=== PATIENT | male | born 1980 | race Caucasian/White ===

== ENCOUNTER 2022-02-14 20:50 | Inpatient (IN) | payer SELFPAY ==
[~2022-02-14] VITALS: Ht 172.7 cm; Wt 101.6 kg
[2022-02-14 21:01] VITALS: BP 104/43
[2022-02-14] MEDS ORDERED: ACETAMINOPHEN EXTRA STRENGTH 500 MG TAB ONE (21:09)
--- NOTE | 2022-02-14 21:10 | NUR ---
PT AMBULATED TO BED 10.
[2022-02-14] MEDS ORDERED: IBUPROFEN 800 MG TAB ONE (21:11)
--- NOTE | 2022-02-14 21:15 | NUR ---
cooling measures initiated, ice packs to bilat armpits and groin.
--- NOTE | 2022-02-14 21:15 | NUR ---
received verbal order from cruz to give 1g of tylenol and 800mg of ibuprofen po for fever of 103.4
[2022-02-14] MEDS ORDERED: NACL 0.9% 2,000 ML IV ONE (21:20)
--- NOTE | 2022-02-14 21:29 | NUR ---
18 g to left ac, labs collected and given to crystal.
[2022-02-14] MEDS ORDERED: IBUPROFEN 800 MG TAB PO ONE (21:35)
[2022-02-14] MEDS ORDERED: ACETAMINOPHEN EXTRA STRENGTH 500 MG TAB PO ONE (21:35)
[2022-02-14 21:38] LABS: BASOPHILS % (AUTO) 0.3 % (0.0-2.0); EOSINOPHILS % (AUTO) 0.1 % (0.0-4.0); HEMATOCRIT 40.1 % (36-52); HEMOGLOBIN 13.1 g/dL (12.0-18.0); LYMPHOCYTES # (AUTO) 0.9 K/uL (2.0-11.5); LYMPHOCYTES % (AUTO) 6.6 % (20.5-51.1); MEAN CORPUSCULAR HEMOGLOBIN 27 pg (27-31); MEAN CORPUSCULAR HGB CONC 33 g/dL (33-37); MEAN CORPUSCULAR VOLUME 83.4 fL (80-94); MONOCYTES # (AUTO) 0.9 K/uL (0.8-1.0); NEUTROPHILS # (AUTO) 11.1 K/uL (1.8-7.7); PLATELET COUNT (AUTO) 271 K/uL (140-450); RED BLOOD CELL COUNT(AUTO) 4.81 MIL/uL (4.20-6.10); RED CELL DISTRIBUTION WIDTH 13.3 % (11.6-13.7)
[2022-02-14] MEDS ORDERED: AZITHROMYCIN 500 MG in DEXTROSE 5% 250 ML IV ONE (21:40)
[2022-02-14 21:56] LABS: ALBUMIN 2.5 g/dL (3.4-5.0); ANION GAP 7.3 (8-16); CARBON DIOXIDE 29.6 mmol/L (21-32); CREATININE 1.1 mg/dL (0.6-1.3); POTASSIUM 3.9 mmol/L (3.5-5.1); TOTAL BILIRUBIN 0.3 mg/dL (0.0-1.0)
[2022-02-14] MEDS ORDERED: DOCUSATE SODIUM 100 MG GELCAP PO PRN (22:25)
[2022-02-14] MEDS ORDERED: ZOLPIDEM 5 MG TAB PO PRN (22:25)
[2022-02-14] MEDS ORDERED: ONDANSETRON 4 MG/2 ML VIAL IM/IVP PRN (22:25)
[2022-02-14] MEDS ORDERED: POTASSIUM CHLORIDE 10 MEQ TABER PO PRN (22:25)
[2022-02-14] MEDS ORDERED: AZITHROMYCIN 500 MG INJ VIAL IV ONE (22:31)
[2022-02-14] MEDS ORDERED: cefTRIAXone 1,000 MG VIAL ONE (22:31)
[2022-02-14 23:10] LABS: APPEARANCE,URINE CLEAR (CLEAR); BILIRUBIN,URINE 1+ (NEGATIVE); BLOOD, URINE NEGATIVE (NEGATIVE); LEUKOCYTE ESTERASE ,URINE NEGATIVE (NEGATIVE); NITRITE, URINE NEGATIVE (NEGATIVE); UGLUCOSE TRACE (NEGATIVE)
[2022-02-14 23:12] LABS: AMYLASE 33 U/L (25-115); LIPASE 79 U/L (73-393); MAGNESIUM 1.6 mg/dL (1.8-2.4); PHOSPHORUS 2.2 mg/dL (2.5-4.9); THYROID STIMULATING HORMONE 2.85 uIU/mL (0.34-3.74); TRIGLYCERIDES 65 mg/dL (30-150)
--- NOTE | 2022-02-14 23:30 | NUR ---
RECEIVED PT FROM ER NURSE VIA WHEELCHAIR FOR CONTINUITY OF CARE. PT IS aWAKE ALBANIAN SPEAKING. IV INTA CT AND PATENT.
--- NOTE | 2022-02-14 23:31 | NUR ---
REPORT GIVEN TO RIGOBERTO VERAS TO BED 106B. ADMITTED WITH AZITHROMYIN GOING AT 250ML/HR AND RIGOBERTO VERAS CONFIRMED WILL GIVE DUE MED 1000ML N/S WHEN TRANSFERRED INTO BED.
[2022-02-14 23:33] LABS: FREE T4 (FREE THYROXINE) 1.54 ng/dL (0.76-1.46)
[2022-02-14 23:47] LABS: COLOR,URINE DARK YELLOW (YELLOW)
[2022-02-14 23:56] LABS: RBC,URINE 0-5 /HPF (0-5); WBC,URINE 0-5 /HPF (0-5)
[2022-02-14 23:58] LABS: BARBITURATE, URINE NEGATIVE ng/ml (NEG <=200); BENZODIAZEPINE, URINE NEGATIVE ng/mL (NEG <=200); CANNABINOID, URINE NEGATIVE ng/mL (NEG <=50); COCAINE, URINE NEGATIVE ng/mL (NEG <=300); OPIATE, URINE POSITIVE ng/mL (NEG <=2000); PHENCYCLIDINE SCREEN,URINE POSITIVE ng/mL (NEG <=25)
[2022-02-15 00:16] LABS: CHOL/HDL RATIO 3.5 (1-4.5); HDL CHOLESTEROL 29 mg/dL (40-60); LDL (CALC) 60 mg/dL (60-100)
[2022-02-15] MEDS: NACL 0.9% 1,000 ML IV SCH ×4 (00:18→19:52)
--- NOTE | 2022-02-15 01:00 | NUR ---
TYLENOL 650 MG GIVEN FOR TEMP OF 102.3 PLUS COOLING MEASURES
[2022-02-15] MEDS: ACETAMINOPHEN 325 MG TAB PO PRN ×2 (01:35→21:38)
--- NOTE | 2022-02-15 02:00 | NUR ---
TEMP 98.0,PATIENT ASLEEP,NO DISTRESS NOTED
[2022-02-15] MEDS: guaiFENesin DM 200/20 MG-10 ML 10 ML UDC PO PRN ×2 (02:43→20:14)
[2022-02-15 03:51] LABS: PROTHROMBIN TIME 13.2 secs (10.8-13.4)
[2022-02-15 04:00] VITALS: BP 97/55
[2022-02-15] MEDS: HYDROcodone/APAP 7.5/325 MG 1 TAB PO PRN ×3 (05:16→23:28)
--- NOTE | 2022-02-15 06:00 | NUR ---
PATIENT ASLEEP,BREATHING EVEN AND UNLABORED NO DISTRESS NOTED
--- NOTE | 2022-02-15 07:27 | NUR ---
ENDORSED PT TO AM NURSE FOR CONTINUITY OF CARE,PT IS STABLE
[2022-02-15 08:00] VITALS: BP 86/41
--- NOTE | 2022-02-15 08:00 | NUR ---
RECEIVE ENDORSEMENT FORM PM SHIFT NURSE THAT PATIENT REST IN BED, GRICEL brady. HAND 24G IV NS INFUSING AT 125ML/HR. WILL CONTINUE TO MONITOR
[2022-02-15] MEDS ORDERED: NACL 0.9% 1,000 ML IV SCH (08:25)
--- NOTE | 2022-02-15 08:37 | NUR ---
PATIENT HAS BEEN SCREENED AND CATEGORIZED MODERATE NUTRITION RISK. PATIENT WILL BE SEEN WITHIN 3-5 DAYS OF ADMISSION. 02/15/22-02/19/[address]
[2022-02-15] MEDS ORDERED: AZITHROMYCIN 250 MG TAB PO SCH (09:00)
[2022-02-15] MEDS: PANTOPRAZOLE 40 MG TABEC PO SCH (09:47)
[2022-02-15] MEDS: LEVOFLOXACIN 750 MG/D5W PREMIX 150 ML IV SCH (11:00)
[2022-02-15] MEDS ORDERED: VANCOMYCIN PER PHARMACY MC PRN (11:05)
--- NOTE | 2022-02-15 11:14 | NUR ---
PATIENT RETURN FROM HEAD CT PROCEDURE. ORDER PCR. WILL CONTINUE TO MONITOR
[2022-02-15] MEDS: VANCOMYCIN 1,000 MG in DEXTROSE 5% 250 ML IV SCH ×2 (13:00→20:38)
[2022-02-15 16:00] VITALS: BP 47/41
--- NOTE | 2022-02-15 19:35 | NUR ---
RECEIVED PT FROM AM NURSE FOR CONTINUITY OF CARE.PT IS STABLE
--- NOTE | 2022-02-15 19:40 | NUR ---
ENDORSE PT TO PM SHIFT NURSE THAT PATIENT REST IN BED, GRICEL MACHADO 22G IV NS INFUSING AT 125ML/HR Addendum: 02/15/22 at 1945 by Jadyn Nobles RN ENDORSEMENT FROM PM SHIFT NURSE THAT PATIENT REST IN BED, GRICEL MACHADO INFUSING NS AT 140ML/H
[2022-02-15 20:00] VITALS: BP 111/55
--- NOTE | 2022-02-15 21:30 | NUR ---
ALL SCHEDULED MEDICATIONS GIVEN,NO ADVERSE REACTIONS NOTED
--- NOTE | 2022-02-16 01:00 | NUR ---
PATIENT ASLEEP,BREATHING EVEN AND UNLABORED,NO DISTRESS NOTED
--- NOTE | 2022-02-16 03:00 | NUR ---
PATIENT'S TEMP WENT DOWN FROM 101.9 TO 99.9 AFTER GIVING TYLENO AND COOLING MEASURES. WILL CONTINUE TO MONITOR
[2022-02-16] MEDS: NACL 0.9% 1,000 ML IV SCH ×3 (03:44→17:32)
[2022-02-16] MEDS: VANCOMYCIN 1,000 MG in DEXTROSE 5% 250 ML IV SCH (04:56)
[2022-02-16 07:01] LABS: ANION GAP 9.1 (8-16); CARBON DIOXIDE 28.1 mmol/L (21-32); POTASSIUM 4.2 mmol/L (3.5-5.1)
--- NOTE | 2022-02-16 07:10 | NUR ---
RECEIVED REPORT FROM NIGHTSHIFT NURSE FOR CONTINUITY OF CARE. PT IS CURRENTLY SLEEPING, A/OX3 AND FREQUENTLY MUTTERS INCOMPREHENSIBLE WORDS . BREATHING IS EVEN, SLIGHTLY LABORED ON ROOM AIR WITH FREQUENT COUGHING FITS. PT IS CONTINENT OF THE BOWEL AND BLADDER AND IS ABLE TO AMBULATE TO THE RESTROOM. SKIN IS INTACT, WARM AND DRY. NO FEVER NOTED. DENIES PAIN, PT IN STABLE CONDITION.
[2022-02-16 07:24] LABS: BASOPHILS % (AUTO) 0.4 % (0.0-2.0); EOSINOPHILS % (AUTO) 0.2 % (0.0-4.0); HEMATOCRIT 37.5 % (36-52); HEMOGLOBIN 12.3 g/dL (12.0-18.0); LYMPHOCYTES % (AUTO) 8.4 % (20.5-51.1); MEAN CORPUSCULAR HEMOGLOBIN 27 pg (27-31); MEAN CORPUSCULAR HGB CONC 33 g/dL (33-37); MEAN CORPUSCULAR VOLUME 83.8 fL (80-94); MONOCYTES # (AUTO) 0.4 K/uL (0.8-1.0); MONOCYTES % (AUTO) 3.6 % (1.7-9.3); NEUTROPHILS # (AUTO) 10.2 K/uL (1.8-7.7); NEUTROPHILS % (AUTO) 87.4 % (42.2-75.2); PLATELET COUNT (AUTO) 261 K/uL (140-450); RED BLOOD CELL COUNT(AUTO) 4.47 MIL/uL (4.20-6.10); RED CELL DISTRIBUTION WIDTH 13.5 % (11.6-13.7); WHITE BLOOD COUNT (AUTO) 11.7 K/uL (4.8-10.8)
[2022-02-16 08:00] VITALS: BP 118/53
[2022-02-16 08:07] LABS: T4 (THYROXINE) 7.3 ug/dL (4.5-12.0)
[2022-02-16] MEDS: guaiFENesin DM 200/20 MG-10 ML 10 ML UDC PO PRN ×2 (08:48→16:31)
[2022-02-16] MEDS: PANTOPRAZOLE 40 MG TABEC PO SCH (08:48)
--- NOTE | 2022-02-16 08:48 | NUR ---
PT VISUALLY ASSESSED AND COUGHING FREQUENCY INCREASED. PRN ROBITUSSIN GIVEN. PT DENIES ANY PAIN
--- NOTE | 2022-02-16 10:30 | NUR ---
PT VISUALLY ASSESSED AND CURRENTLY SLEEPING. NO SIGNS OF DISTRESS NOTED.
[2022-02-16] MEDS: LEVOFLOXACIN 750 MG/D5W PREMIX 150 ML IV SCH (10:59)
--- NOTE | 2022-02-16 12:00 | NUR ---
ASSISTED PT TO RESTROOM. PT WAS ABLE TO AMBULATE ON STEADY GAIT. NO SIGNS OF DISTRESS NOTED, PT COUGHING INCREASED IN FREQUENCY AFTER AMBULATING AND SETTLED AFTER LYING BACK DOWN.
[2022-02-16] MEDS: VANCOMYCIN HCL 1.25 GM in DEXTROSE 5% 250 ML IV SCH ×2 (14:00→20:35)
--- NOTE | 2022-02-16 14:15 | NUR ---
PT VISUALLY ASSESSED AND CURRENTLY SLEEPING. NO SIGNS OF DISTRESS OR PAIN NOTED.
[2022-02-16] MEDS ORDERED: AZITHROMYCIN 500 MG in DEXTROSE 5% 250 ML IV SCH (15:00)
--- NOTE | 2022-02-16 15:40 | NUR ---
PT BECAME VERY AGITATED AND BEGAN SPITTING ON THE FLOOR STATING HE COULD NOT BREATH AFTER HE AMBULATED TO THE BATHROOM. PT'S O2 SAT WAS 90% ON ROOM AIR. PT WAS PLACED ON 2 L VIA NASAL CANNULA AND WAS VISIBLY CALMED. O2 SAT INCREASED TO 96%.
[2022-02-16 16:00] VITALS: BP 137/76
[2022-02-16] MEDS: ACETAMINOPHEN 325 MG TAB PO PRN (16:25)
--- NOTE | 2022-02-16 16:25 | NUR ---
PIERCER OPERATOR REPORTED PT HAD A FEVER OF 101.1. PRN TYLENOL GIVEN, COOLING MEASURES INITIATED USING ICE PACKS.
--- NOTE | 2022-02-16 16:30 | NUR ---
PT WAS MOVED TO ROOM 112B TO PROVIDE COOLER TEMPERATURE FOR COOLING MEASURES.
--- NOTE | 2022-02-16 18:05 | NUR ---
PT VISUALLY ASSESSED AND CURRENTLY SLEEPING. NO SIGNS OF DISTRESS OR PAIN NOTED.
--- NOTE | 2022-02-16 19:40 | NUR ---
ENDORSED PT TO NIGHTSHIFT NURSE FOR CONTINUITY OF CARE. PT IN STABLE CONDITION.
--- NOTE | 2022-02-16 19:42 | NUR ---
RECEIVED PT SLEEPING, EASILY AROUSABLE BUT DROWSY, CLEAR LUNG SOUNDS, NO SOB NOTED, WITH OCCASIONAL DRY COUGH, IVF INFUSING WELL, SAFETY MEASURES IN PLACE, GIRLFRIEND AT BEDSIDE, CALL LIGHT WITHIN REACH.
[2022-02-16 20:00] VITALS: BP 104/49
--- NOTE | 2022-02-16 21:50 | NUR ---
SEEN PT SLEEPING, VISIBLE CHEST RISE AND FALL, NO SIGNS OF SOB, VOIDED FREELY WITH 800ML VIA URINAL, MONITORED CLOSELY.
--- NOTE | 2022-02-16 23:35 | NUR ---
PT SLEEPING, NO SIGNS OF DISTRESS, REPORT GIVEN TO RITO SANCHEZ FOR CONTINUITY OF CARE.
--- NOTE | 2022-02-16 23:36 | NUR ---
RECEIVED REPORT FROM RITO JHA. PATIENT IS ASLEEP. BREATHING NORMAL. SYMMETRICAL RISE AND FALL OF CHEST. IVF NS INFUSING AT 140 ML/HR. SAFETY MEASURES ARE IN PLACE. BED WHEELS LOCKED. BED IN LOW POSITION. CALL LIGHT IN REACH. WILL CONTINUE TO MONITOR.
[2022-02-17] MEDS: NACL 0.9% 1,000 ML IV SCH ×4 (00:28→21:55)
--- NOTE | 2022-02-17 02:45 | NUR ---
ANSWERED CALL LIGHT, NEEDS ATTENDED. WATER GIVEN. NO DISTRESS, NO FEVER NOTED AT THIS TIME.
[2022-02-17] MEDS: VANCOMYCIN HCL 1.25 GM in DEXTROSE 5% 250 ML IV SCH ×3 (04:41→21:00)
--- NOTE | 2022-02-17 04:41 | NUR ---
SCHEDULED VANCOMYCIN ADMINISTERED PER MD ORDER. BREATHING REGULAR NON LABORED. CALL LIGHT ON EASY REACH. AFEBRILE.
[2022-02-17 06:55] LABS: ANION GAP 8.7 (8-16); CARBON DIOXIDE 27.8 mmol/L (21-32); CREATININE 0.7 mg/dL (0.6-1.3); POTASSIUM 3.5 mmol/L (3.5-5.1)
[2022-02-17 07:13] LABS: BASOPHILS # (AUTO) 0.1 K/uL (0.00-0.22); BASOPHILS % (AUTO) 0.7 % (0.0-2.0); EOSINOPHILS % (AUTO) 0.6 % (0.0-4.0); HEMATOCRIT 35.4 % (36-52); HEMOGLOBIN 11.7 g/dL (12.0-18.0); LYMPHOCYTES # (AUTO) 0.9 K/uL (2.0-11.5); LYMPHOCYTES % (AUTO) 11.9 % (20.5-51.1); MEAN CORPUSCULAR HEMOGLOBIN 28 pg (27-31); MEAN CORPUSCULAR HGB CONC 33 g/dL (33-37); MEAN CORPUSCULAR VOLUME 83.6 fL (80-94); MONOCYTES # (AUTO) 0.6 K/uL (0.8-1.0); MONOCYTES % (AUTO) 7.9 % (1.7-9.3); NEUTROPHILS # (AUTO) 6.1 K/uL (1.8-7.7); NEUTROPHILS % (AUTO) 78.9 % (42.2-75.2); PLATELET COUNT (AUTO) 270 K/uL (140-450); RED BLOOD CELL COUNT(AUTO) 4.23 MIL/uL (4.20-6.10); RED CELL DISTRIBUTION WIDTH 13.9 % (11.6-13.7); WHITE BLOOD COUNT (AUTO) 7.7 K/uL (4.8-10.8)
--- NOTE | 2022-02-17 07:30 | NUR ---
PT HAS BEEN ENDORSED BY CAR CONDITIONER NURSE FOR CONTINUITY OF CARE, POC DISCUSSED. PT IS RESTING IN BED ON 3L NC WITH CHEST RISING AND FALLING EVEN AND UNLABORED. NO ACUTE S/S OF DISTRESS. ALL SAFETY MEASURES IN PLACE, CALL LIGHT WITHIN REACH. WILL CONTINUE TO MONITOR.
--- NOTE | 2022-02-17 07:31 | NUR ---
PATIENT IS STABLE. BEDSIDE ENDORSEMENT GIVEN TO AM NURSE CANALES FOR CONTINUITY OF CARE.
[2022-02-17 08:00] VITALS: BP 117/64
[2022-02-17] MEDS: PANTOPRAZOLE 40 MG TABEC PO SCH (09:16)
--- NOTE | 2022-02-17 09:17 | NUR ---
JAY MED ADMINISTERED PER MD ORDER, PT TOLERATED ADMINISTRATION. PRN TYLENOL ADMINISTERED PER MD ORDER FOR FEVER OF 100.9. COOL WASH CLOTHES PROVIDED TO PT. IV PATENT AND INTACT. ASSESSMENT COMPLETED. PT ON 3L NC. ALL SAFETY MEASURES IN PLACE, CALL LIGHT WITHIN REACH. WILL CONTINUE TO MONITOR.
[2022-02-17] MEDS: ACETAMINOPHEN 325 MG TAB PO PRN (09:25)
--- NOTE | 2022-02-17 11:24 | NUR ---
PHYSICAL THERAPY AT BEDSIDE
[2022-02-17] MEDS: LEVOFLOXACIN 750 MG/D5W PREMIX 150 ML IV SCH (11:31)
[2022-02-17] MEDS ORDERED: POTASSIUM CHLORIDE 10 MEQ TABER PO PRN (11:45)
--- NOTE | 2022-02-17 12:15 | NUR ---
PT CALLS REPORTS IV CONTINUING TO BEEP, UPON ASSESSMENT, IV DOES NOT APPEAR TO BE INFILTRATED. PT REQUESTING NEW IV. NEW IV PLACED TO RIGHT AC 20G, LEFT AC REMOVED CANNULA INTACT. PT TOLERATED INSERTION. GIRLFRIEND AT BEDSIDE. REPORTS ALL NEEDS ARE BEING MET. ALL SAFETY MEASURES IN PLACE, CALL LIGHT WITHIN REACH. WILL CONTINUE TO MONITOR.
--- NOTE | 2022-02-17 13:03 | NUR ---
EDUCATED GIRLFRIEND ON HOSPITAL POLICY OF NOT BEING ABLE TO LIE IN THE BED WITH THE PT. VERBALIZED UNDERSTANDING. ALL SAFETY MEASURES IN PLACE, CALL LIGHT WITHIN REACH. WILL CONTINUE TO MONITOR.
--- NOTE | 2022-02-17 14:03 | NUR ---
JAY MEDICATION ADMINISTERED PER MD ORDER AFTER LAB RESULTS FOR VANCO TROUGH RETURNED. ALL SAFETY MEASURE IN PLACE, CALL LIGHT WITHIN REACH. WILL CONTINUE TO MONITOR.
--- NOTE | 2022-02-17 15:03 | NUR ---
PT RESTING IN BED WITH NO ACUTE S/S OF DISTRESS. ALL SAFETY MEASURES IN PLACE, CALL LIGHT WITHIN REACH.
[2022-02-17 16:00] VITALS: BP 119/71
--- NOTE | 2022-02-17 17:30 | NUR ---
IV BEEPING ALARMING HIGH PRESSURE, UPON ASSESSMENT, IV PATENT AND INTACT. NO PAIN NOTED. EDUCATED ON KEEPING ARM START SINCE IV IS IN AC. PT VERBALIZED UNDERSTANDING. IV FLUIDS RESTART. GIRLFRIEND AT BEDSIDE. ALL SAFETY MEASURES IN PLACE, CALL LIGHT WITHIN REACH. WILL CONTINUE TO MONITOR.
--- NOTE | 2022-02-17 18:46 | NUR ---
PT HAS REMAINED STALE THROUGHOUT THE SHIFT, ALL NEEDS HAVE BEEN MET. ALL SAFETY MEASURES IN PLACE. CALL LIGHT WITHIN REACH. WILL ENDORSE TO SEMICONDUCTOR WAFERS TESTER NURSE AT 1900.
--- NOTE | 2022-02-17 19:25 | NUR ---
RECEIVED REPORT FROM AM NURSE. PATIENT IS WELL RESTED IN BED ON SEMI FOWLERS POSITION. NO SOB NOTED ON ROOM AIR. BREATHING NORMAL. SYMMETRICAL RISE AND FALL OF CHEST. IVF NS INFUSING AT 140 ML/HR. NO COMPLAINTS OF PAIN. VISITOR AT BEDSIDE. SAFETY MEASURES IN PLACE. BED IN LOW POSITION , WHEELS LOCKED. CALL LIGHT WITHIN REACH. WILL CONTINUE TO MONITOR.
--- NOTE | 2022-02-17 22:05 | NUR ---
ANSWERED CALL LIGHT, NEEDS ATTENDED, MET. PT IS STABLE. NO ACUTE DISTRESS MNOTED AT THIS TIME.
[2022-02-18] VITALS: BP 101/59
--- NOTE | 2022-02-18 02:33 | NUR ---
PATIENT SLEEPING. BREATHING NORMAL, SYMMETRICAL RISE AND FALL OF CHEST NOTED. CALL LIGHT IN REACH.
[2022-02-18] MEDS: VANCOMYCIN HCL 1.25 GM in DEXTROSE 5% 250 ML IV SCH ×3 (05:14→21:04)
[2022-02-18] MEDS: NACL 0.9% 1,000 ML IV SCH ×3 (05:52→18:38)
--- NOTE | 2022-02-18 07:04 | NUR ---
PATIENT IS STABLE. ENDORSED TO AM NURSE FOR CONTINUITY OF CARE.
[2022-02-18 07:06] LABS: BASOPHILS # (AUTO) 0.1 K/uL (0.00-0.22); EOSINOPHILS # (AUTO) 0.1 K/uL (0-0.4); EOSINOPHILS % (AUTO) 2.2 % (0.0-4.0); HEMATOCRIT 35.6 % (36-52); HEMOGLOBIN 11.6 g/dL (12.0-18.0); LYMPHOCYTES % (AUTO) 18.3 % (20.5-51.1); MEAN CORPUSCULAR HEMOGLOBIN 27 pg (27-31); MEAN CORPUSCULAR HGB CONC 33 g/dL (33-37); MONOCYTES # (AUTO) 0.5 K/uL (0.8-1.0); MONOCYTES % (AUTO) 9.7 % (1.7-9.3); NEUTROPHILS # (AUTO) 3.9 K/uL (1.8-7.7); NEUTROPHILS % (AUTO) 68.8 % (42.2-75.2); PLATELET COUNT (AUTO) 314 K/uL (140-450); RED BLOOD CELL COUNT(AUTO) 4.24 MIL/uL (4.20-6.10); RED CELL DISTRIBUTION WIDTH 13.7 % (11.6-13.7); WHITE BLOOD COUNT (AUTO) 5.6 K/uL (4.8-10.8)
[2022-02-18 07:19] LABS: ANION GAP 10.3 (8-16); CARBON DIOXIDE 28.1 mmol/L (21-32); CREATININE 0.7 mg/dL (0.6-1.3); POTASSIUM 3.4 mmol/L (3.5-5.1)
--- NOTE | 2022-02-18 07:26 | NUR ---
RECEIVED REPORT FROM ENGINEERING TECHNICAL WRITER FOR CONTINUITY CARE. PT I ALERT AND ORIENT X 4, ON ROOM AIR, IV ON RIGHT AC, INTACT AND PATENT. POINT OF CARE DISCUSSED. ALL SAFETY MEASURE IN PLACE, CALL LIGHT WITHIN REACH, WILL CONTINUE TO MONITOR.
[2022-02-18 08:00] VITALS: BP 93/50
--- NOTE | 2022-02-18 08:44 | NUR ---
PATIENT HAS BEEN SCREENED AND CATEGORIZED MODERATE NUTRITION RISK. PATIENT WILL BE SEEN WITHIN 3-5 DAYS OF ADMISSION. [address]ELLE AL[address]
[2022-02-18] MEDS: PANTOPRAZOLE 40 MG TABEC PO SCH (08:56)
--- NOTE | 2022-02-18 09:30 | NUR ---
PT RESTING ON BED, RESPIRATION EVEN, UNLABORED, NO DISTRESS NOTED. ALL SAFETY MEASURE IN PLACE, CALL LIGHT WITHIN REACH, WILL CONTINUE TO MONITOR.
--- NOTE | 2022-02-18 10:42 | NUR ---
PT PLACED BACK IN BED AFTER PHYSICAL THERAPY, PT STABLE. DENIES SOB AND NEED FOR SUPPLEMENTAL OXYGEN. PT STATES HE IS STARTING TO FEEL BETTER. PT RECONNECT TO IV FLUIDS, IV PATENT AND INTACT.
[2022-02-18] MEDS: LEVOFLOXACIN 750 MG/D5W PREMIX 150 ML IV SCH (10:53)
--- NOTE | 2022-02-18 11:00 | NUR ---
MEDICATION ADMINISTERED PER MD ORDER BY IVPB, IV SITE ON LEFT ON RIGHT AC, INTACT AND PATENT, PT TOLERATED WELL. ALL SAFETY MEASURE IN PLACE, CALL LIGHT WITHIN REACH, WILL CONTINUE TO MONITOR.
--- NOTE | 2022-02-18 13:00 | NUR ---
MEDICATION VANCOMYCIN ADMINISTERED PER MD ORDER BY IVPB, IV SITE INTACT AND PATENT, PT RESTING ON BED, NO DISTRESS NOTED. ALL SAFETY MEASURE IN PLACE, CALL LIGHT WITHIN REACH, WILL CONTINUE TO MONITOR.
--- NOTE | 2022-02-18 14:14 | NUR ---
ROUNDED ON PT, PT IS STABLE IN BED WITH NO ACUTE S/S OF DISTRESS. CHEST RISING AND FALLING EVEN AND UNLABORED. ALL SAFETY MEASURES IN PLACE, CALL LIGHT WITHIN REACH. WILL CONTINUE TO MONITOR.
--- NOTE | 2022-02-18 15:40 | NUR ---
PHYSICAL THERAPY CO-SIGN The Physical Therapy Progress Notes documented by Loom Changer have been reviewed. Reviewed/Co-Signed by: Renee Grewal Documentation Done by: ANDI ALVAREZ PTA Addendum: 02/19/22 at 1541 by Renee Grewal PT Amended: Links added.
[2022-02-18 16:00] VITALS: BP 111/65
--- NOTE | 2022-02-18 16:30 | NUR ---
PT RESTING ON BED, RESPIRATION EVEN, UNLABORED, NO DISTRESS NOTED, ALL SAFETY MEASURE IN PLACE, CALL LIGHT WITHIN REACH, WILL CONTINUE TO MONITOR.
--- NOTE | 2022-02-18 18:17 | NUR ---
PT STATED HE WANTS TO GO HOME IF THERE IS NOTHING MORE NEEDING TO BE DONE FOR HIM. EDUCATED HIM ON IMPORTANCE OF WAITING UNTIL MEDICALLY CLEARS HIM FOR DISCHARGE AND THAT HE IS STILL RECEIVING ANTIBIOTICS. PT VERBALIZED UNDERSTANDING AND STATING HE WILL STAY. NEW IV FLUIDS STARTED ON PT. ALL NEEDS ARE MET. ALL SAFETY MEASURES IN PLACE, CALL LIGHT WITHIN REACH. WILL CONTINUE TO MONITOR.
--- NOTE | 2022-02-18 18:57 | NUR ---
PT RESTING ON BED, RESPIRATION EVEN, UNLABORED, NO DISTRESS NOTED. ALL SAFETY MEASURE IN PLACE, CALL LIGHT WITHIN REACH, WILL ENDORSE TO WOOD FENCE INSTALLER FOR CONTINUE CARE.
--- NOTE | 2022-02-18 19:10 | NUR ---
RECEIVED REPORT FROM AM NURSE. PATIENT IS SITTING AT BEDSIDE COMMODE. AAOX4. ON ROOM AIR. NO SOB NOTED. BREATHING REGULAR NON LABORED. IV ACCESS ON THE RFA 24 GAUGE SALINE LOCK. NO COMPLAINTS OF PAIN AT THIS TIME. SAFETY MEASURES IN PLACE. BED IN LOW POSITION WHEELS LOCKED. CALL LIGHT WITHIN REACH. WILL CONTINUE TO MONITOR. Addendum: 02/18/22 at 2213 by Jamia Gandhi RN RN WRONG PATIENT
--- NOTE | 2022-02-18 19:15 | NUR ---
RECEIVED REPORT FROM AM RN. PATIENT WELL RESTED IN BED. AAOX4. ON ROOM AIR. NO S/S OF RESPIRATORY DISTRESS. RESPIRATION EVEN UNLABORED. IV ACCESS ON THE RAC 18 GAUGE INFUSING NS AT 140 ML/HR. NO COMPLAINTS OF PAIN. ALL SAFETY MEASURES ARE IN PLACE. BED IN LOW POSITION WHEELS LOCKED. ABLE TO AMBULATE WITHOUT ASSIST. CALL LIGHT WITHIN REACH. WILL CONTINUE TO MONITOR.
--- NOTE | 2022-02-18 21:04 | NUR ---
ADMINISTERED SCHEDULED MEDICATION ORDERED.
[2022-02-19] VITALS: BP 109/63
[2022-02-19] MEDS: NACL 0.9% 1,000 ML IV SCH ×3 (02:31→09:04)
[2022-02-19] MEDS: VANCOMYCIN HCL 1.25 GM in DEXTROSE 5% 250 ML IV SCH (04:44)
--- NOTE | 2022-02-19 04:44 | NUR ---
VANCOMYCIN ADMINISTERED SCHEDULED.
[2022-02-19 07:21] LABS: BASOPHILS % (AUTO) 0.7 % (0.0-2.0); EOSINOPHILS # (AUTO) 0.2 K/uL (0-0.4); EOSINOPHILS % (AUTO) 4.2 % (0.0-4.0); HEMATOCRIT 38.3 % (36-52); HEMOGLOBIN 12.6 g/dL (12.0-18.0); LYMPHOCYTES # (AUTO) 1.1 K/uL (2.0-11.5); LYMPHOCYTES % (AUTO) 22.9 % (20.5-51.1); MEAN CORPUSCULAR HEMOGLOBIN 27 pg (27-31); MEAN CORPUSCULAR HGB CONC 33 g/dL (33-37); MEAN CORPUSCULAR VOLUME 83.3 fL (80-94); MONOCYTES # (AUTO) 0.4 K/uL (0.8-1.0); MONOCYTES % (AUTO) 9.1 % (1.7-9.3); NEUTROPHILS % (AUTO) 63.1 % (42.2-75.2); PLATELET COUNT (AUTO) 379 K/uL (140-450); RED CELL DISTRIBUTION WIDTH 13.9 % (11.6-13.7); WHITE BLOOD COUNT (AUTO) 4.8 K/uL (4.8-10.8)
--- NOTE | 2022-02-19 07:22 | NUR ---
RECEIVED REPORT FROM QUOTER NURSE FOR CONTINUITY OF CARE, PT ASLEEP IN BED ON ROOM AIR WITH CHEST RISING AND FALLING EVEN AND UNLABORED. PT HAS A RIGHT AC RUNNING NS @ 140. PATENT AND INTACT. URINAL AT BEDSIDE. ALL SAFETY MEASURES IN PLACE, CALL LIGHT WITHIN REACH. WILL CONTINUE TO MONITOR.
--- NOTE | 2022-02-19 07:22 | NUR ---
PATIENT STABLE. ENDORSED TO AM NURSE FOR CONTINUITY OF CARE.
[2022-02-19 07:38] LABS: ANION GAP 10.7 (8-16); CARBON DIOXIDE 28.4 mmol/L (21-32); CREATININE 0.7 mg/dL (0.6-1.3); POTASSIUM 4.1 mmol/L (3.5-5.1)
[2022-02-19 08:00] VITALS: BP 104/82
[2022-02-19] MEDS: PANTOPRAZOLE 40 MG TABEC PO SCH (09:04)
--- NOTE | 2022-02-19 09:07 | NUR ---
JAY MEDICATION ADMINISTERED PER MD ORDER, PT STATES HE WANTS TO GO HOME. AWAITING FOR DISCHARGE ORDER. PT IS STABLE AND REPORTS ALL OTHER NEEDS ARE MET. GIRLFRIEND AT BEDSIDE. ALL SAFETY MEASURES IN PLACE, CALL LIGHT WITHIN REACH. WILL CONTINUE TO MONITOR.
[2022-02-19] MEDS ORDERED: LEVO750T51 PO (10:21)
[2022-02-19] MEDS: LEVOFLOXACIN 750 MG/D5W PREMIX 150 ML IV SCH (11:00)
--- NOTE | 2022-02-19 11:45 | NUR ---
PT HAS BEEN DISCHARGED IN STABLE CONDITION. PLAN OF CARE AND EDUCATION PROVIDED TO PT AND PTS GIRLFRIEND. MEDICATION DISCUSSED AND LOCATION OF PHARMACY. PT AND PT GIRLFRIEND VERBALIZED UNDERSTANDING. IV REMOVED, CATH INTACT. ID BAND REMOVED. ALL PERSONNEL BELONGINGS IN POSSESSION. PT IS STABLE. PT AMBULATED OUT OF HOSPITAL WITH GF.
--- NOTE | 2022-02-19 11:55 | NUR ---
P.T. NOTES D/C FROM P.T. AFTER TX, REFER TO DC SUMMARY FOR DETAILS.
== END 2022-02-19 12:33 | disposition home or self-care (01) | DRG 871 ==
LOC: MED 20:50 → MMU 22:28 → MTU 22:41
PROVIDERS: ADMIT Family Medicine; ATTEND Family Medicine
DX: A41.9 Sepsis, unspecified organism (principal); E43 Unspecified severe protein-calorie malnutrition; G92.9 Unspecified toxic encephalopathy; J18.9 Pneumonia, unspecified organism; E87.1 Hypo-osmolality and hyponatremia; Z20.822 Contact with and (suspected) exposure to COVID-19; F16.10 Hallucinogen abuse, uncomplicated; E86.0 Dehydration; Z68.34 Body mass index [BMI] 34.0-34.9, adult
CPT/HCPCS: 36415; 70450; 71045; 80048; 80053; 80202; 80305; 81001; 82150; 82948; 83036; 83605; 83690; 83735; 83880; 84100; 84436; 84439; 84443; 84479; 84484; 85025; 85610; 85730; 86592; 87040; 87081; 87086; 87449; 87635-QW; 93005; 97112; 97116; 97163-GP; 97530; G0482; J0456; J0696; J1956; J3370; J7060; Q0092